=== PATIENT | female | born 1955 | race Caucasian/White ===

== ENCOUNTER → 2019-10-30 10:51 | Outpatient (CLI) | payer MEDICARE, SELFPAY ==
--- NOTE | ~2019-10-30 | MM_ITS ---
EXAMINATION: MM screening [facility] BI w rowan HISTORY: Screening TECHNIQUE: Craniocaudal and mediolateral oblique 3-D tomosynthesis images were obtained and synthetic 2-D images were generated. CAD analysis was submitted and interpreted. COMPARISON: 02/04/2018 BREAST PARENCHYMAL COMPOSITION: There are scattered areas of fibroglandular density. FINDINGS: There is no evidence of suspicious mass, calcification, or architectural distortion to sugg est malignancy in either breast. There has been no suspicious interval change. IMPRESSION: 1. No mammographic evidence of malignancy. 2. Recommend routine screening mammography in one year. BI-RADS Category 1: Negative Reviewed, dictated and finalized at location A.
--- NOTE | ~2019-10-30 | DEXA_ITS ---
Bone Density Report Name: Jessica Weber Age: 64 Sex: Female Ethnicity: White Date of : 1955 Indication: postmenopausal; screening for osteoporosis; height loss; history of glucocorticoids; asthma or emphysema; hysterectomy; Referring Provider: PHYSICIAN NOT ON STAFF Study: Bone densitometry was performed. Exam Date: October 30, 2019 Accession number: [id number] Bone Density: Region BMD T-score Z-score Classification AP Spine (L1-L4) 1.112 0.6 2.4 Normal Femoral Neck (Left) 0.816 -0.3 1.2 Normal Total Hip (Left) 1.155 1.7 3.0 Normal Femoral Neck (Right) 0.831 -0.2 1.4 Normal Total Hip (Right) 1.030 0.7 2.0 Normal Total Hip Mean 1.093 1.2 2.5 Normal World Health Organization criteria for BMD impression classify patients as: Normal (T-score at or above -1.0), Osteopenia (T-score between -1.0 and -2.5), or Osteoporosis (T-score at or below -2.5). 10-year Fracture Risk: FRAX not reported because: All T-scores for Spine Total, Hip Total, Femoral Neck at or above -1.0 Clinical Information Provided by Patient: Has taken Glucocorticoids Has the following medical conditions: Asthma or Emphysema, Hysterectomy Patient maximum height was 67 Menopause Age: 41 No regular weight bearing exercise Drinks caffeinated beverages Onset of menses at age 11 Number of children 1 Impression: The patient has normal bone mass. The patient has risk factors, including: history of glucocorticoid therapy. Discussion: BONE DENSITY IS ABOVE THE MINIMUM DESIRABLE LEVEL AT ALL SKELETAL SITES TESTED. This patient?s bone mineral density is above the minimum desirable level (T-score -1.0 or better) at all sites measured. The patient should follow a healthful lifestyle (good nutrition with adequate calcium and vitamin D, and appropriate weight-bearing exercise). Follow-Up: Consider repeating this study in 5 years or sooner if there is some new clinical indication. Reported by: ROSSY on 10/30/2019 11:26:00 AM. Reviewed, dictated and finalized at location [facility]
== END ==
PROVIDERS: PCP Family Medicine
DX: Z12.31 Encounter for screening mammogram for malignant neoplasm of breast (principal); Z78.0 Asymptomatic menopausal state
CPT/HCPCS: 77063; 77067; 77080

== ENCOUNTER → 2020-02-09 15:31 | Outpatient (CLI) | payer MEDICARE, SELFPAY ==
--- NOTE | ~2020-02-09 | CT_ITS ---
EXAMINATION: CT chest wo con DATE: 02/09/2020 16:01 INDICATION: Lung nodule TECHNIQUE: Computed tomography (CT) of the chest was performed without intravenous contrast. Automate d exposure control and iterative reconstruction technique were employed. Exam dose: 202.08 mGy-cm to jeffry exam DLP. COMPARISON: 04/30/2017 and 02/04/2015 CT chest examinations FINDINGS: There are emphysematous changes of the lungs. No pulmonary infiltrate or consolidation is e vident. There is a stable approximately 1.8 x 2.1 cm mass in the right upper lobe, unchanged in size since 04/30/2017, previously attributed to hamartoma based upon foci of fat within the lesion and absence of ab normal activity on a prior PET/CT scan. Stable several millimeter nodular density left upper lobe since 08/2014. Normal heart size. No pericardial or pleural effusion. No hilar or mediastinal mass lesion or lymphad enopathy. No thoracic aortic aneurysm. Degenerative spurring of the thoracic spine. No suspicious osteolytic or osteoblastic lesions are not ed. 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 Reviewed, dictated and finalized at location A. SPORT AIRCREWMAN IMPRESSION: Stable right upper lobe mass, previously attributed to benign hama rtoma Emphysema No significant new finding
== END ==
PROVIDERS: Visit Provider Family Medicine
DX: R91.8 Other nonspecific abnormal finding of lung field (principal); J43.9 Emphysema, unspecified
CPT/HCPCS: 71250

== ENCOUNTER → 2020-08-29 12:41 | Outpatient (CLI) | payer MEDICARE, SELFPAY ==
--- NOTE | ~2020-08-29 | CT_ITS ---
EXAMINATION: CT abdomen pelvis wo con DATE: 08/29/2020 14:03 INDICATION: Flank pain TECHNIQUE: Computed tomography (CT) of the abdomen and pelvis was performed without intravenous contr ast. The dose-length product (DLP) was 1049.74 mGy-cm. Automated exposure control and iterative recon struction technique were employed. COMPARISON: 08/21/2016 FINDINGS: Minimal dependent atelectasis is present in the lung bases. The heart size is normal. The g allbladder is surgically absent. There is mild enlargement of the common bile duct and central intrah epatic ducts which is likely due to post cholecystectomy state. The liver, spleen, pancreas, and adre nal glands are normal. There is a 1.3 cm cyst projecting from the right kidney lower pole. The left k idney is unremarkable. No stones are identified in the kidneys, ureters, or bladder. There is no hydr onephrosis or hydroureter. There are phleboliths of the pelvis. No pathologically enlarged abdominal or pelvic lymph nodes are identified. There is no free intraperitoneal gas or evidence of bowel obstr uction. There is calcified atherosclerosis of the aorta and many of the other arteries. There is mild lumbar spondylosis. IMPRESSION: 1. No CT correlate for the patient's symptoms. Reviewed, dictated and finalized at location B.
== END ==
PROVIDERS: PCP Family Medicine; Visit Provider Family Medicine
DX: R10.9 Unspecified abdominal pain (principal)
CPT/HCPCS: 74176

== ENCOUNTER → 2020-11-20 15:55 | Outpatient (CLI) | payer MEDICARE, SELFPAY ==
--- NOTE | ~2020-11-20 | MM_ITS ---
EXAMINATION: MM screening [facility] BI w rowan HISTORY: Screening mammogram TECHNIQUE: Craniocaudal and mediolateral oblique 3-D tomosynthesis images were obtained and synthetic 2-D images were generated. CAD analysis was submitted and interpreted. COMPARISON: 10/30/2019, 02/04/2018 by lateral digital screening mammogram examinations BREAST PARENCHYMAL COMPOSITION: The breasts are almost entirely fatty. FINDINGS: There is no evidence of suspicious mass, calcification, or architectural distortion to sugg est malignancy in either breast. There has been no suspicious interval change. IMPRESSION: 1. No mammographic evidence of malignancy. 2. Recommend routine screening mammography in one year. BI-RADS Category 1: Negative Reviewed, dictated and finalized at location A.
== END ==
PROVIDERS: PCP Family Medicine; Visit Provider Family Medicine
DX: Z12.31 Encounter for screening mammogram for malignant neoplasm of breast (principal)
CPT/HCPCS: 77063; 77067

== ENCOUNTER → 2021-04-08 10:50 | Outpatient (CLI) | payer MEDICARE, SELFPAY ==
--- NOTE | ~2021-04-08 | CT_ITS ---
EXAMINATION:CT diagnostic chest wo con DATE: 04/08/2021 11:12 INDICATION: Lung nodule. Pulmonary infiltrates. TECHNIQUE: Computed tomography (CT) of the chest was performed without intravenous contrast. Automate d exposure control and iterative reconstruction technique were employed. The dose-length product (DLP ) was 338.79 mGy-cm. COMPARISON: Chest CT 02/09/2020, 02/02/14 FINDINGS: There is mild emphysema. There is a 2.0 cm nodule in right upper lobe, stable from 02/09/20 20. There is mild atelectasis bilaterally. No pleural effusion. There are changes of right hemithyroi dectomy. The heart size is normal. There are coronary artery calcifications. No pericardial effusion. There is diffuse hepatic steatosis. There is severe thoracic spondylosis. IMPRESSION: 1. 2.0 cm nodule in right lung upper lobe, stable from 02/09/2020 and increased from 1.7 cm on 014, likely benign. 2. Mild emphysema. Reviewed, dictated and finalized at location A. COMMUNICATIONS INSTRUCTOR IMPRESSION: 1. 2.0 cm nodule in right lung upper lobe, stable from 02/09/2020 and increased from 1.7 cm on 02/02/2014, likely benign. 2. Mild emphysema.
== END ==
PROVIDERS: PCP Family Medicine
DX: R91.1 Solitary pulmonary nodule (principal); R91.8 Other nonspecific abnormal finding of lung field; J43.9 Emphysema, unspecified
CPT/HCPCS: 71250

== ENCOUNTER → 2021-08-15 15:03 | Outpatient (CLI) | payer MEDICARE, SELFPAY ==
--- NOTE | ~2021-08-15 | XR_ITS ---
EXAMINATION: XR chest 2V Exam Date/Time: 08/15/2021 15:14 CDT HISTORY: COPD Exacerbation Comparison: 07/19/2017. RESULT: Lines, tubes, and devices: None. Lungs and pleura: Clear. Right perihilar nodule, previously reported as benign. Cardiomediastinal silhouette: Stable cardiomediastinal silhouette. Other: No acute osseous or upper abdominal finding. IMPRESSION: No acute cardiopulmonary process. Reviewed, dictated and finalized at location K.
== END ==
PROVIDERS: PCP Family Medicine; Visit Provider Nurse Practitioner Family
DX: J44.1 Chronic obstructive pulmonary disease with (acute) exacerbation (principal); R91.8 Other nonspecific abnormal finding of lung field
CPT/HCPCS: 71046

== ENCOUNTER → 2022-02-18 14:13 | Outpatient (CLI) | payer MEDICARE, SELFPAY ==
--- NOTE | ~2022-02-18 | MM_ITS ---
EXAMINATION: MM screening ledy BI w rowan HISTORY: Screening TECHNIQUE: Craniocaudal and mediolateral oblique 3-D tomosynthesis images were obtained and synthetic 2-D images were generated. CAD analysis was submitted and interpreted. COMPARISON: Comparison to multiple prior studies sequentially, with oldest reviewed study dated 06/2016. BREAST PARENCHYMAL COMPOSITION: There are scattered areas of fibroglandular density. FINDINGS: There is no evidence of suspicious mass, calcification, or architectural distortion to sugg est malignancy in either breast. There has been no suspicious interval change. IMPRESSION: 1. No mammographic evidence of malignancy. 2. Recommend routine screening mammography in one year. BI-RADS Category 1: Negative Reviewed, dictated and finalized at location A. ER PICKER
== END ==
PROVIDERS: PCP Family Medicine; Visit Provider Family Medicine
DX: Z12.31 Encounter for screening mammogram for malignant neoplasm of breast (principal)
CPT/HCPCS: 77063; 77067

== ENCOUNTER → 2022-04-02 11:00 | Outpatient (CLI) | payer MEDICARE, SELFPAY ==
--- NOTE | ~2022-04-02 | DEXA_ITS ---
Bone Density Report Name: MOE ESPINOSA Age: 66 Sex: Female Ethnicity: White Date of : 1955 Indication: postmenopausal; screening for osteoporosis; height loss; asthma or emphysema; hysterectomy; Referring Provider: BRAYAN WONG Study: Bone densitometry was performed. Exam Date: April 02, 2022 Accession number: [id number] Bone Density: Region BMD T-score Z-score Classification AP Spine (L1-L4) 1.211 1.5 3.4 Normal Femoral Neck (Left) 0.796 -0.5 1.2 Normal Total Hip (Left) 1.134 1.6 2.9 Normal Femoral Neck (Right) 0.849 0.0 1.7 Normal Total Hip (Right) 1.053 0.9 2.3 Normal Total Hip Mean 1.094 1.3 2.6 Normal World Health Organization criteria for BMD impression classify patients as: Normal (T-score at or above -1.0), Osteopenia (T-score between -1.0 and -2.5), or Osteoporosis (T-score at or below -2.5). 10-year Fracture Risk: FRAX not reported because: All T-scores for Spine Total, Hip Total, Femoral Neck at or above -1.0 Previous Exams: Region Exam Age BMD T-score BMD Change BMD Change Date g/cm2 vs Baseline vs Previous AP Spine(L1-L4) 04/02/2022 66 1.211 1.5 0.098* 0.098* 10/30/2019 64 1.112 0.6 Total Hip(Left) 04/02/2022 66 1.134 1.6 -0.021 -0.021 10/30/2019 64 1.155 1.7 Total Hip(Right) 04/02/2022 66 1.053 0.9 0.023 0.023 10/30/2019 64 1.030 0.7 *Denotes significance at 95% confidence level, LSC for AP Spine = 0.022 g/cm2, LSC for Total Hip = 0.027 g/cm2 Clinical Information Provided by Patient: Has used the following medications: Vitamin D, multi vit Has the following medical conditions: Asthma or Emphysema, Hysterectomy Patient maximum height was 67 Menopause Age: 41 No regular weight bearing exercise Drinks caffeinated beverages Onset of menses at age 11 Number of children 1 Impression: The patient has normal bone mass. No significant bone loss was observed. Discussion: BONE DENSITY IS ABOVE THE MINIMUM DESIRABLE LEVEL AT ALL SKELETAL SITES TESTED. This patient?s bone mineral density is above the minimum desirable level (T-score -1.0 or better) at all sites measured. The patient should follow a healthful lifestyle (good nutrition with adequate calcium and vitamin D, and appropriate weight-bearing exercise). Follow-Up: Consider repeating this study in 5 years or sooner if there is some new clinical indication. Reported by: ROSSY carpio
== END ==
PROVIDERS: PCP Family Medicine
DX: Z13.820 Encounter for screening for osteoporosis (principal); Z78.0 Asymptomatic menopausal state
CPT/HCPCS: 77080

== ENCOUNTER → 2022-04-09 10:24 | Outpatient (CLI) | payer MEDICARE, SELFPAY ==
--- NOTE | ~2022-04-09 | CT_ITS ---
EXAMINATION: CT diagnostic chest wo con DATE: 04/09/2022 10:38 INDICATION: Lung nodule TECHNIQUE: Computed tomography (CT) of the chest was performed without intravenous contrast. The dose -length product (DLP) was 285.45 mGy-cm. Automated exposure control and iterative reconstruction tech [employer] were employed. COMPARISON: 04/08/2021, 02/04/2015 FINDINGS: There is a stable 2 cm nodule of the right upper lobe. There is mild emphysema. No pleural effusion or pneumothorax. There is mild atelectasis. No pathologically enlarged thoracic lymph nodes are identified. The heart size is normal. There is calcified coronary artery atherosclerosis. Changes of right hemithyroidectomy are noted. Subendocardial fat deposition in the distal ventricular septum of the heart is consistent with prior myocardial infarction. There is severe thoracic spondylosis. T he gallbladder is surgically absent. IMPRESSION: 1. Stable 2 cm nodule of the right upper lobe, likely benign. Reviewed, dictated and finalized at location L. ANICAL PROCESS ENGINEER
== END ==
PROVIDERS: PCP Family Medicine; Visit Provider Family Medicine
DX: R91.1 Solitary pulmonary nodule (principal)
CPT/HCPCS: 71250

== ENCOUNTER → 2023-02-20 10:40 | Outpatient (CLI) | payer MEDICARE, SELFPAY ==
--- NOTE | ~2023-02-20 | MM_ITS ---
EXAMINATION: MM screening ledy BI w rowan HISTORY: Screening mammogram TECHNIQUE: Craniocaudal and mediolateral oblique 3-D tomosynthesis images were obtained and synthetic 2-D images were generated. CAD analysis was submitted and interpreted. COMPARISON: 02/18/2022, 11/20/2020, 10/30/2019 bilateral screening mammogram examinations BREAST PARENCHYMAL COMPOSITION: The breasts are almost entirely fatty. FINDINGS: There is no evidence of suspicious mass, calcification, or architectural distortion to sugg est malignancy in either breast. There has been no suspicious interval change. IMPRESSION: 1. No mammographic evidence of malignancy. 2. Recommend routine screening mammography in one year. BI-RADS Category 1: Negative Reviewed, dictated and finalized at location A. MS ADJUSTER CROP
== END ==
PROVIDERS: PCP Family Medicine; Visit Provider Family Medicine
DX: Z12.31 Encounter for screening mammogram for malignant neoplasm of breast (principal)
CPT/HCPCS: 77063; 77067

== ENCOUNTER 2024-01-21 10:13 | Outpatient (CLI) | payer MEDICARE, SELFPAY ==
--- NOTE | ~2024-01-21 | CT_ITS ---
EXAMINATION:CT diagnostic chest wo con DATE: 01/21/2024 11:26 INDICATION: Pulmonary nodule. TECHNIQUE: Computed tomography (CT) of the chest was performed without intravenous contrast. Automate d exposure control and iterative reconstruction technique were employed. The dose-length product (DLP ) was 643.67 mGy-cm. COMPARISON: Chest CT 04/09/2022, 02/09/20, 02/04/15 FINDINGS: There is moderate emphysema. There is a 2.1 cm nodule in right upper lobe. There is mild at electasis bilaterally. There is mucous plugging in right lower lobe. No pleural effusion. The heart d emonstrates lipomatous hypertrophy of the interatrial septum. There are coronary artery calcification s. No pericardial effusion. There are changes of right hemithyroidectomy. There are changes of cholec ystectomy. There is severe thoracic spondylosis. IMPRESSION: 1. 2.1 cm nodule in right lung upper lobe, stable from 02/09/2020, likely benign. 2. Moderate emphysema. Reviewed, dictated and finalized at location A. OR GIS ANALYST IMPRESSION: 1. 2.1 cm nodule in right lung upper lobe, stable from 02/09/2020, likely benig n. 2. Moderate emphysema.
--- NOTE | ~2024-01-21 | CT_ITS ---
EXAMINATION: CT sinus wo con DATE: 01/21/2024 11:26 INDICATION: Chronic maxillary sinusitis. TECHNIQUE: Computed tomography (CT) of the paranasal sinuses was performed without intravenous contra st. Iterative reconstruction technique was employed. The dose-length product was 250.81 mGy-cm. COMPARISON: CT sinuses 12/10/2017 FINDINGS: There is mild mucosal thickening in the frontal, ethmoid, sphenoid, and maxillary sinuses. There is rightward deviation of the nasal septum. There are changes of ethmoidectomies. Right ostiome atal unit is occluded. Left ostiomeatal unit is patent. IMPRESSION: 1. Mild mucosal thickening in the paranasal sinuses with occlusion of right ostiomeatal unit. 2. Rightward deviation of the nasal septum. Reviewed, dictated and finalized at location A. UCT SAFETY TEST ENGINEER IMPRESSION: 1. Mild mucosal thickening in the paranasal sinuses with occlusion of right ost iomeatal unit. 2. Rightward deviation of the nasal septum.
== END 2024-01-21 10:14 | disposition home or self-care (01) ==
LOC: MICIMG 10:13
PROVIDERS: PCP Family Medicine; Visit Provider Family Medicine
DX: R91.1 Solitary pulmonary nodule (principal); J43.9 Emphysema, unspecified; J32.0 Chronic maxillary sinusitis; J34.89 Other specified disorders of nose and nasal sinuses; J34.2 Deviated nasal septum
CPT/HCPCS: 70486; 71250

== ENCOUNTER 2024-02-24 08:43 | Outpatient (CLI) | payer MEDICARE, SELFPAY ==
--- NOTE | ~2024-02-24 | CT_ITS ---
EXAMINATION: CT IAC/mastoids BI wo con DATE: 02/24/2024 09:18 INDICATION: Vertigo. TECHNIQUE: Computed tomography (CT) of the temporal bones was performed without intravenous contrast. Automated exposure control and iterative reconstruction technique were employed. The dose-length pro duct was 210.67 mGy-cm. COMPARISON: None FINDINGS: There are likely changes of left ocular lens replacement surgery. RIGHT TEMPORAL BONE: The internal auditory canal, cochlea, vestibule, semicircular canals, vestibular aqueduct, and caroti d canal are normal. There is a high riding jugular bulb. The facial nerve course, ossicles, scutum, t ympanic membrane, mastoid air cells, and external artery canal are normal. LEFT TEMPORAL BONE: The internal auditory canal, cochlea, vestibule, semicircular canals, vestibular aqueduct, carotid ca nal, jugular bulb, facial nerve course, ossicles, tympanic membrane, mastoid air cells, and external auditory canal are normal. IMPRESSION: 1. No etiology for the patient's symptoms. Reviewed, dictated and finalized at location A. ISH MASSEUSE
--- NOTE | ~2024-02-24 | MM_ITS ---
EXAMINATION: MM screening [facility] BI w rowan HISTORY: Screening TECHNIQUE: Craniocaudal and mediolateral oblique 3-D tomosynthesis images were obtained and synthetic 2-D images were generated. CAD analysis was submitted and interpreted. COMPARISON: 02/20/2023 and dating back to 10/30/2019 BREAST PARENCHYMAL COMPOSITION: There are scattered areas of fibroglandular density. FINDINGS: Punctate calcifications detected bilaterally, stable and benign in appearance and primarily dermal in origin. Stable parenchymal pattern without suspicious microcalcifications, architectural distortion, discrete masses or significant asymmetry. IMPRESSION: 1. No mammographic evidence of malignancy. 2. Recommend routine screening mammography in one year. BI-RADS Category 2: Benign finding(s). Reviewed, dictated and finalized at location A. C ENGINEER
== END 2024-02-24 08:44 | disposition home or self-care (01) ==
LOC: MICIMG 08:45
PROVIDERS: PCP Family Medicine; Visit Provider Family Medicine
DX: Z12.31 Encounter for screening mammogram for malignant neoplasm of breast (principal); R42 Dizziness and giddiness
CPT/HCPCS: 70480; 77063; 77067

== ENCOUNTER 2024-07-21 15:19 | Outpatient (CLI) | payer MEDICARE, SELFPAY ==
--- NOTE | ~2024-07-21 | XR_ITS ---
Exam: Abdomen 1V HISTORY: Abdominal/flank pain COMPARISON: None TECHNIQUE: Supine images of the abdomen FINDINGS: Bowel gas pattern is nonspecific and non-obstructive. There is no free air or deep sulci. Extensive fecal stasis is identified within the colon. The stomach is decompressed. No pathologic calcifications are seen. Lung bases are clear. IMPRESSION: Nonspecific, nonobstructive bowel gas pattern. Reviewed, dictated and finalized at location A.
== END 2024-07-21 15:20 | disposition home or self-care (01) ==
PROVIDERS: PCP Family Medicine
DX: R14.3 Flatulence (principal); N30.00 Acute cystitis without hematuria
CPT/HCPCS: 74018

== ENCOUNTER 2024-07-26 10:04 | Outpatient (CLI) | payer MEDICARE, SELFPAY ==
--- NOTE | ~2024-07-26 | CT_ITS ---
Non-contrast CT scan of the Abdomen and Pelvis Clinical indication: Right flank pain Technique: 2.5 mm axial scans were obtained through the abdomen and pelvis without intravenous or or al contrast. Dose reduction technique was used on this scan by utilizing automated exposure control a nd iterative reconstruction technique. The dose-length product (DLP) was 1053.17 mGy-cm. COMPARISON: 08/29/2020 Findings: Images through the lung bases reveal no abnormalities. There is lipomatous hypertrophy of the interatrial septum, partially imaged. There is no evidence of renal or ureteral calculi. The kidneys and the ureters are nondilated. The liver, spleen, pancreas, and adrenals appear normal. Cholecystectomy clips are present. There is no aortic aneurysm. There is no evidence of bowel obstruction. Images through the pelvis were performed. There is no evidence of ascites or lymphadenopathy. Urinary bladder unremarkable. Status post hysterectomy. No pelvic mass seen. Impression: No significant abnormality seen. Reviewed, dictated and finalized at [facility]. Impression: No significant abnormality seen.
== END 2024-07-26 10:05 | disposition home or self-care (01) ==
LOC: MICIMG 10:04
PROVIDERS: PCP Family Medicine
DX: R10.9 Unspecified abdominal pain (principal)
CPT/HCPCS: 74176

== ENCOUNTER 2024-12-04 10:04 | Outpatient (CLI) | payer MEDICARE, SELFPAY ==
--- NOTE | ~2024-12-04 | DEXA_ITS ---
Bone Density Report Name: MOE ESPINOSA Age: 69 Sex: Female Ethnicity: White Date of : 1955 Indication: postmenopausal; screening for osteoporosis; height loss; asthma or emphysema; hysterectomy; Referring Provider: ROSCOE MERCADO Study: Bone densitometry was performed. Exam Date: December 04, 2024 Accession number: [id number] Bone Density: Region BMD T-score Z-score Classification AP Spine(L1-L4) 1.153 1.0 3.1 Normal Femoral Neck (Left) 0.702 -1.3 0.5 Osteopenia Total Hip (Left) 1.154 1.7 3.3 Normal Femoral Neck (Right) 0.734 -1.0 0.8 Normal Total Hip (Right) 1.078 1.1 2.6 Normal Total Hip Mean 1.116 1.4 3.0 Normal World Health Organization criteria for BMD impression classify patients as: Normal (T-score at or above -1.0), Osteopenia (T-score between -1.0 and -2.5), or Osteoporosis (T-score at or below -2.5). 10-year Fracture Risk(1): Major Osteoporotic Fracture 8.5% Hip Fracture 1.0% Reported Risk Factors: [place] (), Neck BMD=0.702, BMI=39.3 (1) FRAX(R) Version 3.08. Fracture probability calculated for an untreated patient. Fracture probability may be lower if the patient has received treatment. Previous Exams: -- Region Exam Age BMD T-score BMD Change BMD Change Date g/cm2 vs Baseline vs Previous -- AP Spine (L1-L4) 12/04/2024 69 1.153 1.0 3.7%# -4.8%# 04/02/2022 66 1.211 1.5 8.9%* 8.9%* 10/30/2019 64 1.112 0.6 Total Hip(Left) 12/04/2024 69 1.154 1.7 -0.1%# 1.8%# 04/02/2022 66 1.134 1.6 -1.8% -1.8% 10/30/2019 64 1.155 1.7 Total Hip(Right) 12/04/2024 69 1.078 1.1 4.6%* 2.4% 04/02/2022 66 1.053 0.9 2.2% 2.2% 10/30/2019 64 1.030 0.7 -- *Denotes significance at 95% confidence level, LSC for AP Spine = 0.022 g/cm2, LSC for Total Hip = 0.027 g/cm2 # Denotes dissimilar scan types or analysis methods Clinical Information Provided by Patient: Has used the following medications: HRT (i.e. estrogen/hormone therapy), Vitamin D Has the following medical conditions: Asthma or Emphysema, Hysterectomy, Type 2 DM Patient maximum height was 66 Menopause Age: 41 No regular weight bearing exercise Drinks caffeinated beverages Onset of menses at age 12 Number of children 1 Impression: The patient has low bone mass, based on the Left Femoral Neck T-score. The patient has an estimated ten-year risk of hip fracture of 1% and an estimated ten-year risk of major fracture of 8.5%, based on the WHO FRAX algorithm. Unable to evaluate interval change due to the use of different scan modes. Discussion: BONE DENSITY IS LOW AT ONE OR MORE SKELETAL SITES. This patient's lowest T-score is low at one or more skeletal sites. It meets the World Health Organization's (WHO) criteria for ?low bone mass? (T-score between -1.0 and -2.5). The patient's 10-year risk of fracture as calculated by FRAX is less than the threshold where pharmacological therapy is recommended by the National Osteoporosis Foundation (NOF). However, all treatment decisions require clinical judgment and consideration of individual patient factors, including patient preferences, comorbidities, previous drug use, risk factors not captured in the FRAX model (e.g., frailty, falls, vitamin D deficiency, increased bone turnover, interval significant decline in bone density) and possible under or overestimation of fracture risk by FRAX. The patient should follow a healthful lifestyle (good nutrition with adequate calcium and vitamin D, and appropriate weight-bearing exercise). Follow-Up: Consider repeating this study in 2 to 3 years to reassess this patient's status, or sooner if there is some new clinical indication. Reported by: YURIY on 12/04/2024 10:54:00 AM. Reviewed, dictated and finalized at location A.
== END 2024-12-04 10:05 | disposition home or self-care (01) ==
LOC: MICIMG 10:06
PROVIDERS: PCP Family Medicine
DX: M85.852 Other specified disorders of bone density and structure, left thigh (principal); M81.0 Age-related osteoporosis without current pathological fracture
CPT/HCPCS: 77080

== ENCOUNTER 2025-02-26 10:54 | Outpatient (CLI) | payer MEDICARE, SELFPAY ==
--- NOTE | ~2025-02-26 | MM_ITS ---
EXAMINATION: MM screening [facility] BI w rowan HISTORY: Screening. TECHNIQUE: Craniocaudal and mediolateral oblique 3-D tomosynthesis images were obtained and synthetic 2-D images were generated. CAD analysis was submitted and interpreted. COMPARISON: 2023, 2022, and 2021 BREAST PARENCHYMAL COMPOSITION: Not Dense: The breasts are almost entirely fatty FINDINGS: No suspicious masses are seen. There are no suspicious calcifications. No unexplained architectural distortion is seen. There are no skin or nipple abnormalities identified. There is no adenopathy seen on the images submitted. IMPRESSION: No mammographic evidence to suggest malignancy is seen. The patient may return to screening mammography as per ACR guidelines. BI-RADS 1 - Negative. Reviewed, dictated and finalized at location A. TENDER
== END 2025-02-26 10:55 | disposition home or self-care (01) ==
LOC: MICIMG 10:55
PROVIDERS: PCP Family Medicine; Visit Provider Family Medicine
DX: Z12.31 Encounter for screening mammogram for malignant neoplasm of breast (principal)
CPT/HCPCS: 77063; 77067